=== PATIENT | male | born 1975 | race African-American/Black ===

== ENCOUNTER 2019-04-08 17:56 | Emergency (ER) | payer OTHER ==
[~2019-04-08] VITALS: Ht 182.9 cm; Wt 84.1 kg
[~2019-04-08 17:56] MED LIST: LORAZEPAM0.5 MG PO; MULTI-DAY VITA1 EACH PO; NORCO 325 MG-51 TAB PO; PAROXETINE20 MG PO
[2019-04-08 18:15] LABS: BASO # 0.1 (0.02-0.10); EOS % 4.8 % (0.0-4.0); HEMATOCRIT 43.4 % (42.0-52.0); HEMOGLOBIN 14.7 g/dL (13.5-18.0); LYMPH# 2.5 (1.50-4.00); MEAN CELL VOLUME 94 fl (78-100); MEAN CORPUSCULAR HEMOGLOBIN 32 pg (27-31); MEAN CORPUSCULAR HGB CONC 34 g/dL (33-37); MEAN PLATELET VOLUME 9.8 fl (7.4-10.4); MONO # 1.3 (0.20-0.80); NEU # 8.8 (1.40-6.50); PLATELET COUNT 313 K/mm3 (130-400); RED BLOOD COUNT 4.64 M/mm3 (4.20-5.60); RED CELL DISTRIBUTION WIDTH 13.4 % (11.5-14.5); WHITE BLOOD COUNT 13.4 K/mm3 (4.8-10.8)
[2019-04-08 18:16] LABS: EOS # 0.7 (0.04-0.40)
[2019-04-08 18:24] LABS: POTASSIUM 3.8 mmol/L (3.5-5.1); SODIUM 139 mmol/L (136-145)
[2019-04-08 18:25] LABS: ALBUMIN 4.2 g/dL (3.5-5.0)
[2019-04-08 18:26] LABS: CALCIUM 9.6 mg/dL (8.3-10.5)
[2019-04-08 18:27] LABS: TOTAL PROTEIN 7.6 g/dL (6.4-8.3)
[2019-04-08 18:28] LABS: CARBON DIOXIDE 23 mmol/L (22-29); GLUCOSE 129 mg/dL (75-110)
[2019-04-08 18:29] LABS: TOTAL BILIRUBIN 0.3 mg/dL (0.2-1.2)
[2019-04-08 18:32] LABS: AST-SGOT 16 U/L (5-34)
[2019-04-08 18:35] LABS: ALT/SGPT 21 U/L (0-55)
[2019-04-08 18:41] LABS: TROPONIN-I < 0.03 ng/mL (<0.030)
[2019-04-08 19:32] LABS: URINE APPEARANCE HAZY; URINE COLOR YELLOW; URINE PROTEIN(semi-quant) TRACE mg/dL (NEGATIVE)
[2019-04-08 19:33] LABS: URINE BILIRUBIN NEGATIVE (NEGATIVE); URINE BLOOD 50 ery/uL (NEGATIVE); URINE GLUCOSE NEGATIVE (NEGATIVE); URINE KETONE NEGATIVE (NEGATIVE); URINE LEUKOCYTE ESTERASE TRACE (NEGATIVE); URINE NITRATE NEGATIVE (NEGATIVE); URINE UROBILINOGEN NORMAL (NORMAL)
[2019-04-08 19:34] LABS: URINE MUCUS PRESENT (NOT PRESENT)
[2019-04-08 20:33] VITALS: BP 159/108
== END 2019-04-08 20:33 | disposition home or self-care (01) ==
LOC: ED 17:56
PROVIDERS: Nurse Practitioner Primary Care
DX: M94.0 Chondrocostal junction syndrome [Tietze] (principal); E86.0 Dehydration; F17.210 Nicotine dependence, cigarettes, uncomplicated; F12.90 Cannabis use, unspecified, uncomplicated
CPT/HCPCS: J0696; J1885; J2270; J7030